=== PATIENT | male | born 1990 | race Caucasian/White ===

== ENCOUNTER 2024-03-03 07:10 | Emergency (ER) | payer MEDICAID ==
[~2024-03-03] VITALS: Ht 172.7 cm; Wt 82.0 kg
[2024-03-03 07:21] VITALS: O2SAT 100
[2024-03-03 12:18] VITALS: BP 120/82; PULSE 69; RESP 16; TEMP 36.66960; O2SAT 100
[2024-03-03] MEDS ORDERED: OLANZAPINE 5MG TABLET ODT PO SCH (21:00)
== END 2024-03-03 12:24 | disposition home or self-care (01) ==
LOC: ER 07:40
DX: F20.9 Schizophrenia, unspecified (principal); Z04.89 Encounter for examination and observation for other specified reasons
CPT/HCPCS: 99284